=== PATIENT | female | born 1985 | race Asian ===

== ENCOUNTER 2024-01-20 06:14 | Inpatient (IN) | payer BC ==
[2024-01-20 08:49] VITALS: BMI 30.2
[2024-01-20] MEDS ORDERED: Misoprostol 200 MCG TAB PR PRN (08:50)
[2024-01-20] MEDS ORDERED: Methylergonovine 0.2 MG/ML VIAL IM PRN (08:50)
[2024-01-20] MEDS ORDERED: Carboprost 250 MCG/ML AMP IM PRN (08:50)
[2024-01-20] MEDS ORDERED: HYDROcodone/Acetaminophen 5/325 mg Tablet PO PRN ×3 (08:50→18:21)
[2024-01-20] MEDS ORDERED: Promethazine HCl 25 MG/ML VIAL IM PRN ×2 (08:50→18:21)
[2024-01-20] MEDS ORDERED: Ibuprofen 800 MG TAB PO PRN (08:50)
[2024-01-20] MEDS ORDERED: fentaNYL 50 mcg/mL 1 mL Vial SLOW IVP PRN (08:50)
[2024-01-20] MEDS ORDERED: Ondansetron PF 4 MG/2 ML Vial IVP PRN ×2 (08:50→18:21)
[2024-01-20] MEDS ORDERED: hydrALAZINE 20 MG/ML VIAL SLOW IVP PRN ×2 (08:50→18:21)
[2024-01-20] MEDS ORDERED: Tranexamic Acid 1,000 MG/10 ML VIAL IVP PRN (08:50)
[2024-01-20] MEDS ORDERED: Diphenoxylate HCl/Atropine Tablet PO PRN (08:50)
[2024-01-20] MEDS ORDERED: Acetaminophen 500 MG TAB PO PRN (08:50)
[2024-01-20] MEDS ORDERED: Lactated Ringer's 1,000 ML IV SCH (09:00)
[2024-01-20] MEDS ORDERED: Oxytocin 30 units/NS 500 ML 500 ML IV SCH ×2 (09:00)
[2024-01-20 09:04] LABS: Fetal Membranes Rupture No Membranes Rupture (No Rupture)
[2024-01-20] MEDS: CEFAZOLIN 2 GM VIAL ONE (09:10)
[2024-01-20 09:19] LABS: Hematocrit 37.4 % (34.9-44.5); Hemoglobin 13.1 g/dL (12.0-15.5); Mean Corpuscular Hemoglobin 31.3 pg (27.0-33.0); Mean Corpuscular Volume 89.5 fL (81.6-98.3); Mean Platelet Volume 10.5 fL (7.4-10.4); Platelet Count 174 10x3/uL (150-450); RBC Distribution Width 12.5 % (11.5-14.5); Red Blood Cell (RBC) Count 4.18 10x6/uL (3.90-5.03); White Blood Cell (WBC) Count 6.6 10x3/uL (3.5-10.5)
[2024-01-20 10:01] LABS: HBsAg Index 0.15 S/CO (0-0.99); Hep B Surf Ag - L&D Non-Reactive S/CO (NonReactive)
[2024-01-20 10:03] LABS: Syphilis Antibody Nonreactive (Nonreactive); Syphilis Antibody Index 0.05 S/CO (<1.00 Non-Reactive)
[2024-01-20] MEDS: Lidocaine 1% (PF) 30 ML VIAL SC PRN (15:26)
[2024-01-20] MEDS ORDERED: CEFAZOLIN 2 GM in Sodium Chloride 0.9% 100 ML IVPB SCH (17:00)
[2024-01-20] MEDS ORDERED: Preparation H Ointment 28 GM TUBE PR PRN (18:21)
[2024-01-20] MEDS ORDERED: Milk Of Magnesia 30 ML UDCUP PO PRN (18:21)
[2024-01-20] MEDS ORDERED: Boostrix 0.5 ML (Tdap) VIAL (>/=7 yrs of age) IM ONE (18:21)
[2024-01-20] MEDS ORDERED: diphenhydrAMINE 25 MG CAP PO PRN (18:21)
[2024-01-20] MEDS ORDERED: Bisacodyl 10 MG SUPP PR PRN (18:21)
[2024-01-20] MEDS ORDERED: Benzocaine-Menthol 82.5 ML CAN TOP PRN (18:21)
[2024-01-20] MEDS ORDERED: Lanolin Ointment 7 GM TUBE TOP PRN (18:21)
[2024-01-20] MEDS: fentaNYL/Ropivacaine Epidural 0 ML ONE (20:03)
[2024-01-20] MEDS: Ferrous Sulfate 325 MG TAB PO SCH (20:04)
[2024-01-20] MEDS: Ibuprofen 800 MG TAB PO SCH (21:46)
[2024-01-20] MEDS: Docusate 100 MG CAP PO SCH (21:46)
[2024-01-21] MEDS: Ferrous Sulfate 325 MG TAB PO SCH (07:30)
[2024-01-21] MEDS: Prenatal Vitamin 1 TAB PO SCH (11:03)
[2024-01-21 11:12] VITALS: BP 114/78; TEMP 97.7
== END 2024-01-21 16:50 | disposition home or self-care (01) | DRG 807 ==
LOC: CSHLD/OP 06:14 → CSHLD 09:43 → CSHPED 18:15
PROVIDERS: ADMIT Student in an Organized Health Care Education/Training Program; ATTEND Student in an Organized Health Care Education/Training Program
PROC: 10E0XZZ Delivery of Products of Conception, External Approach (ICD-10-PCS; principal; 2024-01-20)
PROC: 0HQ9XZZ Repair Perineum Skin, External Approach (ICD-10-PCS; 2024-01-20)
DX: O42.02 Full-term premature rupture of membranes, onset of labor within 24 hours of rupture (principal); Z37.0 Single live birth; Z3A.40 40 weeks gestation of pregnancy; O99.824 Streptococcus B carrier state complicating childbirth
CPT/HCPCS: 84112; 85027; 86780; 86850; 86900; 86901; 87340; 99285; J2001